=== PATIENT | female | born 1990 ===

== ENCOUNTER 2020-04-02 13:29 | Outpatient (CLI) | payer MEDICAID ==
[2020-04-03] MEDS ORDERED: SPIRONOLACTONE50 MG ORAL (11:56)
[2020-04-03] MEDS ORDERED: EPIDUO FORTE 0.45 GM TP (11:56)
== END 2020-04-02 15:29 | disposition home or self-care (01) ==
DX: K62.5 Hemorrhage of anus and rectum (principal)

== ENCOUNTER 2020-07-07 10:14 | Outpatient (CLI) | payer MEDICAID ==
[~2020-07-07 10:14] MED LIST: EPIDUO FORTE 0.45 GM TP; SPIRONOLACTONE50 MG ORAL
[2020-07-07 10:42] VITALS: BP 96/55
[2020-07-07] MEDS ORDERED: CANAASA1000 MG RECTAL (10:44)
--- NOTE | 2020-07-07 11:39 | General Progress Note ---
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
== END 2020-07-07 12:14 | disposition home or self-care (01) ==
LOC: PAN 10:14
DX: K62.89 Other specified diseases of anus and rectum (principal)
CPT/HCPCS: 99212